=== PATIENT | male | born 1980 | race Caucasian/White ===

== ENCOUNTER 2017-08-13 14:16 | Emergency (ER) | payer SELFPAY ==
[~2017-08-13] VITALS: Ht 167.6 cm; Wt 74.8 kg
[2017-08-13 14:33] VITALS: BP 116/72
== END 2017-08-13 15:00 | disposition home or self-care (01) ==
LOC: ER 14:19
DX: H66.92 Otitis media, unspecified, left ear (principal); F17.200 Nicotine dependence, unspecified, uncomplicated
CPT/HCPCS: 99283; 99406; A4606; Z7610